=== PATIENT | male | born 1955 | race Hispanic/Latino ===

== ENCOUNTER 2023-07-20 04:36 | Emergency (ER) | payer OTHER ==
--- OUTSIDE RECORDS SUMMARY | 2023-07-20 04:40 | XMS REPORT | Continuity of Care Document ---
:1955 Author Organization [facility] t Address [address] [facility] [address] [place] [address] Care Team Providers Name Role Phone Asked, No Pcp Primary Care Physician Unavailable Manny MOULTON, Shilo Brown Attending Clinician Ysabel Attending Clinician Unavailable Den ONEIL, Ehsan Attending Clinician Unavailable [facility]isell [facility] Attending Clinician Unavailable Adali Mo RN Attending Clinician Unavailable Hilda Hinkle RN Attending Clinician Unavailable Dylan [facility] Attending Clinician Unavailable Jb Leung RN Attending Clinician Unavailable Patricia [facility] Attending Clinician Unavailable Taj [facility] Attending Clinician Unavailable PETER TORRES Attending Clinician Unavailable JESSY GUTIERREZ Attending Clinician Unavailable Brisa Tarango Attending Clinician Unavailable IVETTE Attending Clinician Unavailable PENNY Attending Clinician Unavailable A_Byrd Attending Clinician Unavailable JENNYFER SOMMER Attending Clinician Unavailable Ysabel Admitting Clinician Unavailable IVETTE Admitting Clinician Unavailable PENNY Admitting Clinician Unavailable A_Byrd Admitting Clinician Unavailable Payers Payer Name Policy Type Policy Number Effective Date Expiration Date S ource [place]: [id number] 2020 [employer] 00:00:00 [place]: [id number] 2020 [employer] 00:00:00 - [facility] Problems Condition Condition Condition Status Onset Resolution Last Treating Co mments Source Name Details Category Date Date Treatment Clinician Date Urinary Urinary Problem Active 2022-09 [place] tract Tract 0-30 [facility] infectious Infectious 00:00: Ur ology disease Disease 00 Retention Retention Problem Active 2022-09 Kizzy ston of urine of Urine 0-30 [facility] 00:00: Urology 00 Metastatic Metastatic Disease Active M ethodi adenocarci adenocarci 9-20 [facility] to noma to 00:00: Hospita liver liver 00 l Allergies, Adverse Reactions, Alerts This patient has no known allergies or adverse reactions. Family History Family Member Diagnosis Comments Start Date Stop Date Source Natural mother Esophageal cancer [facility] Social History Social Habit Start Date Stop Date Quantity Comments Source History of tobacco Current smoker Me thodist use [facility] Alcohol intake 2023-07-17 2023-07-17 [facility] 00:00:00 00:00:00 Hospital History of Social 2023-07-17 2023-07-[address] function 00:00:00 00:00:00 Hospital Tobacco use and 2023-06-05 2023-06-05 Smokeless [facility] exposure 00:00:00 00:00:00 tobacco non-user [facility] Sex [birth year] [facility] 00:00:00 00:00:00 Hospital Smoking Status Start Date Stop Date Source Current Every Day [facility] Smoker Ex-smoker 2023-06-05 00:00:00 2023-06-05 [facility] Ordered Filled Start Stop Current Ordering Indication Dosage Frequency Signature Comments Components Source Medication Medication Date Date Medication? Clinician (SIG) Name Name ondansetron 2022- Yes [id number] Take one [facility] (Zofran) 8 06-[address] MG tablet 00:00: mouth Hospita 00 every 8 l hours as needed for nausea prochlorper Yes [id number] Take one [facility] azine 06-[address] (COMPAZINE) 00:00: mouth Hospi ta 10 MG 00 every 6 l tablet hours as needed for nausea dexAMETHaso Yes [id number] Take 2 [facility] ne 06-[address] (DECADRON) 00:00: mouth once H ospita 4 MG tablet 00 daily with l breakfast for 2 days. Start day after each chemo lidocaine-p Yes [id number] Apply to [facility] rilocaine 06-[address] (EMLA) 00:00: one hour Hospita 2.5-2.5 % 00 before l cream chemo appointmen t. capecitabin 0 Yes [id number] Take 3 Methodi e (Xeloda) 06-[address] 500 mg 00:00: mouth Hospita chemo 00 twice l tablet daily for 14 days, off for 7 days in a 21 day cycle capecitabin capecitabin No capecitabi Reeves e 500 mg e 500 mg ne 500 mg Me tro tablet Take tablet Take tablet Urology by oral by oral Take by route. route. oral route. Cipro 500 Cipro 500 No 1 Q12H Cipro 500 Reeves mg tablet mg tablet mg tablet [facility] Take 1 Take 1 Take 1 Urology tablet tablet tablet every 12 every 12 every 12 hours by hours by hours by oral route. oral route. oral route. dexamethaso dexamethaso No dexamethas Reeves ne 4 mg ne 4 mg one 4 mg [facility] tablet TAKE tablet TAKE tablet Urology 2 TABLETS 2 TABLETS TAKE 2 BY MOUTH BY MOUTH TABLETS BY ONCE DAILY ONCE DAILY MOUTH ONCE WITH WITH DAILY WITH BREAKFAST BREAKFAST BREAKFAST FOR 2 DAYS. FOR 2 DAYS. FOR 2 START DAY START DAY DAYS. AFTER EACH AFTER EACH START DAY CHEMO CHEMO AFTER EACH CHEMO Flomax 0.4 Flomax 0.4 No 1capsul Q1D Flomax 0.4 Reeves mg capsule mg capsule e(s) mg capsule [facility] Take 1 Take 1 Take 1 Urology capsule capsule capsule every day every day every day by oral by oral by oral route. route. route. lidocaine-p lidocaine-p No lidocaine- Reeves rilocaine rilocaine prilocaine [facility] 2.5 %-2.5 % 2.5 %-2.5 % 2.5 %-2.5 Urology topical topical % topical cream APPLY cream APPLY cream TO PORT TO PORT APPLY TO AREA ONE AREA ONE PORT AREA HOUR BEFORE HOUR BEFORE ONE HOUR CHEMO CHEMO BEFORE APPOINTMENT APPOINTMENT CHEMO . . APPOINTMEN T. ondansetron ondansetron No ondansetro [place] HCl 8 mg HCl 8 mg n HCl 8 mg M etro tablet TAKE tablet TAKE tablet Urology 1 TABLET BY 1 TABLET BY TAKE 1 MOUTH EVERY MOUTH EVERY TABLET BY 8 HOURS 8 HOURS MOUTH NEEDED FOR NEEDED FOR EVERY 8 NAUSEA NAUSEA HOURS NEEDED FOR NAUSEA prochlorper prochlorper No prochlorpe [place] azine azine razine [facility] maleate 10 maleate 10 maleate 10 Urology mg tablet mg tablet mg tablet TAKE 1 TAKE 1 TAKE 1 TABLET BY TABLET BY TABLET BY MOUTH EVERY MOUTH EVERY MOUTH 6 HOURS 6 HOURS EVERY 6 NEEDED FOR NEEDED FOR HOURS NAUSEA NAUSEA NEEDED FOR NAUSEA Vital Signs Vital Name Observation Time Observation Value Comments Source BP Diastolic 2023-07-16 00:00:00 76 mm[Hg] [facility] BMI (Body Mass 2023-07-16 00:00:00 19 kg/m2 Jonatan damion [facility] Index) Urology BP Systolic 2023-07-16 00:00:00 122 mm[Hg] [facility] Body Weight 2023-07-16 00:00:00 118 [lb_av] [facility] Height 2023-07-16 00:00:00 66 [in_i] [facility] Systolic blood 2023-07-17 18:25:28 159 mm[Hg] [facility] pressure Diastolic blood 2023-07-17 18:25:28 89 mm[Hg] [facility] pressure Heart rate 2023-07-17 18:25:28 70 /min [facility] Body temperature 2023-07-17 18:25:28 36.28 [facility] Respiratory rate 2023-07-17 18:25:28 18 /min [facility] Oxygen saturation in 2023-07-17 18:25:28 94 /min [facility] Arterial blood by Pulse oximetry Body weight 2023-07-17 15:19:00 50.44 kg [facility] BMI 2023-07-17 15:19:00 17.95 kg/m2 [facility] Body height 2023-06-27 14:29:00 167.6 cm [facility] Procedures Procedure Date / Time Performing Clinician Source Performed COMPREHENSIVE METABOLIC 2023-07-17 14:30:00 Prath, [facility] PANEL [facility] CBC WITH PLATELET AND 2023-07-17 14:30:00 Prath, [facility] DIFFERENTIAL [place] MAGNESIUM LEVEL 2023-07-17 14:30:00 [facility] [place] ESTIMATED GFR 2023-07-17 14:30:00 Prath, Shilo [facility]ital [place] US LIVER BIOPSY 2023-06-27 16:27:38 Prath, [facility] SURGICAL PATHOLOGY REQUEST 2023-06-27 16:03:00 Prath, [facility] IR PORT PLACEMENT 2023-06-22 20:06:11 Prath, [facility] [place] US GUIDED VASCULAR ACCESS 2023-06-22 20:06:11 Prath, [facility] [place] PARTIAL THROMBOPLASTIN TIME 2023-06-22 18:15:00 Prath, [facility] (PTT) [place] PROTHROMBIN TIME WITH INR 2023-06-22 18:15:00 Prath, [facility] [place] HEPATITIS B SURFACE ANTIGEN 2023-06-22 18:15:00 Prath, [facility] [place] HEPATITIS B CORE ANTIBODY 2023-06-22 18:15:00 Prath, [facility] IGM [place] HEPATITIS B SURFACE AB, 2023-06-22 18:15:00 Prath, [facility] QUANTITATIVE [place] MAGNESIUM LEVEL 2023-06-22 18:15:00 Prath, [facility] [place] COMPREHENSIVE METABOLIC 2023-06-22 18:15:00 Prath, [facility] PANEL [place] CBC WITH PLATELET AND 2023-06-22 18:15:00 Prath, [facility] DIFFERENTIAL [place] ESTIMATED GFR 2023-06-22 18:15:00 Prath, [facility] [place] PET CT SKULL BASE TO MID 2023-06-22 17:36:01 Prath, Shilo [facility] THIGH [place] POC GLUCOSE 2023-06-22 16:01:00 Prath, [facility] spital [place] PARTIAL THROMBOPLASTIN TIME 2023-06-05 16:42:00 [facility], [facility] (PTT) [place] PROTHROMBIN TIME WITH INR 2023-06-05 16:42:00 Jan, [facility] [place] COMPREHENSIVE METABOLIC 2023-06-05 16:42:00 [facility], [facility] PANEL [place] CBC WITH PLATELET AND 2023-06-05 16:42:00 Pra, [facility] DIFFERENTIAL [place] CANCER ANTIGEN 125 2023-06-05 16:42:00 Pra, [facility] [place] CANCER ANTIGEN 19-9 2023-06-05 16:42:00 Pra, [facility] [place] CARCINOEMBRYONIC ANTIGEN 2023-06-05 16:42:00 [facility], [facility] (CEA) [place] ESTIMATED GFR 2023-06-05 16:42:00 [facility], [facility] spital [facility] US ABDOMINAL EXTERNAL STUDY 2023-05-03 14:59:34 [facility], [facility] CT ABD/PELVIC EXTERNAL 2023-04-26 16:48:47 [facility], [facility] STUDY [place] XR ABD/PELVIC EXTERNAL 2023-04-26 16:06:24 [facility], [facility] STUDY [place] Plan of Care Planned Activity Planned Date Details Comments Source Future Scheduled 2023-07-19 65+ PNEUMOCOCCAL [facility] Test 13:22:35 VACCINE (1 - PCV) [code = 65+ PNEUMOCOCCAL VACCINE (1 - PCV)] Future Scheduled 2023-07-19 COVID-19 VACCINE (4 - [facility] Test 13:22:35 season) [code = COVID-19 VACCINE (4 - season)] Future Scheduled 2023-07-19 INFLUENZA VACCINE [facility] Test 13:22:35 (#1) [code = INFLUENZA VACCINE (#1)] Future Scheduled 2023-07-19 Hepatitis C screening [facility] Test 13:22:35 (procedure) [code = 324118918] Future Scheduled 2023-07-19 SHINGLES VACCINES (1 [facility] Test 13:22:35 of 2) [code = SHINGLES VACCINES (1 of 2)] Future Scheduled 2023-07-19 HEPATITIS B VACCINES [facility] Test 13:22:35 (1 of 3 - Risk 3-dose series) [code = HEPATITIS B VACCINES (1 of 3 - Risk 3-dose series)] Diagnostic Test 2023-07-16 urinalysis, dipstick [place] [facility] Pending 00:00:00 [code = urinalysis, Urology dipstick] Encounters Start End Encounter Admission Attending Care Care Encounter Source Date/Time Date/Time Type Type Clinicians Facility Department ID 2023-07-17 2023-07-17 Office [facility], 1.2.840.1 [id number] Method[facility] 11:45:00 14:14:40 Visit Shilo 74742.1.[address] [place] 3.430.2.7 Hospit a .3.889439 l .8 2023-07-17 2023-07-17 Infusion [facility], 1.2.840.1 [id number] [facility] 10:30:00 13:30:[address] [place] 3.430.2.7 Hospit a .3.620846 l .8 2023-07-17 2023-07-17 Lab [facility], 1.2.840.1 [id number] Methodi 09:25:00 09:30:[address] [place] 3.430.2.7 Hospit a .3.023748 l .8 2023-07-17 2023-07-17 Outpatient [facility] [id number] [place] 00:00:00 00:00:00 SHILO 826 Method i 2023-07-17 2023-07-17 Outpatient [facility] [id number] [place] 00:00:00 00:00:00 SHILO 281 Method i 2023-07-17 2023-07-17 Critical access hospital [id number] [place] 00:00:00 00:00:00 SHILO 509 Method i 2023-07-16 2023-07-16 Outpatient Schiffman_Z [facility]U HMU [id number] [place] 00:00:00 00:00:00 30714 [facility] 2023-07-16 2023-07-16 Outpatient Schiffman_Z HMU HMU [id number] [place] 00:00:00 00:00:00 [id number] [facility] 2023-07-16 2023-07-16 Outpatient Schiffman_Z HMU HMU [id number] [place] 00:00:00 00:00:00 08472 [facility] 2023-07-16 2023-07-16 [place] [facility] [place] [facility] [id number] [facility] 00:00:00 Leandro Stock MD: [id number] [facility] Urology [facility] [address], [place] [address] , Ph. 2023-07-11 2023-07-11 Outpatient Schiffman_Z HMU HMU [id number] [place] 00:00:00 00:00:00 17902 [facility] 2023-07-11 2023-07-11 Outpatient Schiffman_Z HMU HMU [id number] [place] 00:00:00 00:00:00 92634 [facility] 2023-07-03 2023-07-03 Yahir Crenshaw 1.2.840.1 [id number] Methodi 00:00:00 00:00:[address] 3.430.2.7 Hospit a .3.942223 l .8 2023-07-03 2023-07-03 Documentat Visintainer 1.2.840.1 [id number] Methodi 00:00:00 00:00:00 Lillian de la rosa 29544.1.[address] 3.430.2.7 Hospit a .3.387047 l .8 2023-06-28 2023-06-28 Carrie Mo 1.2.840.1 [id number] [facility] 00:00:00 00:00:00 Only Adali 01184.1.[address] 3.430.2.7 Hospit a .3.898987 l .8 2023-06-27 2023-06-27 [facility], 1.2.840.1 [id number] Methodi 09:04:36 23:59:00 Encounter Shilo 66083.1.[address] [place] 3.430.2.7 Hospit a .3.844801 l .8 2023-06-27 2023-06-27 Outpatient [facility] [id number] [place] 00:00:00 00:00:00 SHILO [address] 2023-06-26 2023-06-26 Infusion [facility], 1.2.840.1 [id number] Methodi 11:30:00 14:30:[address] [facility] 3.430.2.7 Hospit a .3.637686 l .8 2023-06-26 2023-06-26 [facility], 1.2.840.1 [id number] Method[facility] 11:30:00 13:56:22 Visit Shilo 17815.1.[address] [place] 3.430.2.7 Hospit a .3.919263 l .8 2023-06-26 2023-06-26 Outpatient [facility] [id number] [place] 00:00:00 00:00:00 SHILO [address] 2023-06-26 2023-06-26 Critical access hospital [id number] [place] 00:00:00 00:00:00 SHILO [address] 2023-06-26 2023-06-26 Oncology Hinkle, 1.2.840.1 [id number] Methodi 00:00:00 00:00:00 Survivorsh Hilda 39902.1.[address] ip 3.430.2.7 Hospit a .3.499394 l .8 2023-06-26 2023-06-26 Oncology Hinkle, 1.2.840.1 [id number] Methodi 00:00:00 00:00:00 Surviv[address]ilda [address]269.1.[address] ip 3.430.2.7 Hospit a .3.215144 l .8 2023-06-26 2023-06-26 Orders Delmar Richardson 1.2.840.1 [id number] Methodi 00:00:00 00:00:[address] 3.430.2.7 Hospit a .3.840903 l .8 2023-06-25 2023-06-25 Telephone Jb Leung 1.2.840.1 [id number] Methodi 00:00:00 00:00:[address] 3.430.2.7 Hospit a .3.101479 l .8 2023-06-25 2023-06-25 Documentlarisa Patricia 1.2.840.1 [id number] [id number] Methodi 00:00:00 00:00:00 estrella Marks 45256.1.[address] 3.430.2.7 Hospit a .3.458413 l .8 2023-06-22 2023-06-22 [facility], 1.2.840.1 [id number] Methodi 13:29:57 23:59:00 Encounter Shilo 35587.1.[address] [facility] 3.430.2.7 Hospit a .3.937947 l .8 2023-06-22 2023-06-22 [facility] 1.2.840.1 [id number] Methodi 10:30:53 13:28:00 Encounter Shilo 47299.1.[address] [place] 3.430.2.7 Hospit a .3.963498 l .8 2023-06-22 2023-06-22 [facility] 1.2.840.1 [id number] Methodi 12:55:00 13:00:[address] [place] 3.430.2.7 Hospit a .3.404801 l .8 2023-06-22 2023-06-22 Critical access hospital [id number] [address] [place] [address] 00:00:00 00:00:00 SHILO [address] 2023-06-22 2023-06-22 Critical access hospital [id number] [place] 00:00:00 00:00:00 SHILO [address] 2023-06-22 2023-06-22 [facility], [facility] [id number] [place] 00:00:00 00:00:00 SHILO [address] 2023-06-13 2023-06-13 [facility], 1.2.840.1 [id number] Methodi 11:20:31 23:59:00 Encounter Shilo 54524.1.[address] [facility] 3.430.2.7 Hospit a .3.179862 l .8 2023-06-13 2023-06-13 Critical access hospital [id number] [place] 00:00:00 00:00:00 SHILO [address] 2023-06-13 2023-06-13 [facility], 1.2.840.1 [id number] Methodi 00:00:00 00:00:00 Only Shilo 48120.1.[address] [facility] 3.430.2.7 Hospit a .3.066717 l .8 2023-06-12 2023-06-12 [facility], 1.2.840.1 [id number] Methodi 08:01:11 23:59:00 Encounter Shilo 75156.1.[address] [place] 3.430.2.7 Hospit a .3.510068 l .8 2023-06-12 2023-06-12 [facility], 1.2.840.1 [id number] Methodi 08:00:30 08:00:30 Encounter Shilo 65304.1.[address] [place] 3.430.2.7 Hospit a .3.785776 l .8 2023-06-12 2023-06-12 Critical access hospital [id number] [place] 00:00:00 00:00:00 SHILO [address] 2023-06-12 2023-06-12 [facility], [facility] [id number] [place] 00:00:00 00:00:00 SHILO [address] 2023-06-12 2023-06-12 Orders Chepe, 1.2.840.1 [id number] Methodi 00:00:00 00:00:00 Only Adali 62466.1.[address] 3.430.2.7 Hospit a .3.717640 l .8 2023-06-12 2023-06-12 Orders Manny, 1.2.840.1 [id number] [facility] 00:00:00 00:00:00 Only Shilo 43779.1.[address] [facility] 3.430.2.7 Hospit a .3.866660 l .8 2023-06-07 2023-06-07 Orders Chepe, 1.2.840.1 [id number] Methodi 00:00:00 00:00:00 Only Adali 80506.1.[address] 3.430.2.7 Hospit a .3.452415 l .8 2023-06-07 2023-06-07 Orders Chepe, 1.2.840.1 [id number] [facility]i 00:00:00 00:00:00 Only Adali 37864.1.[address] 3.430.2.7 Hospit a .3.211468 l .8 2023-06-07 2023-06-07 Orders Chepe, 1.2.840.1 [id number] Methodi 00:00:00 00:00:00 Only Adali 81020.1.[address] 3.430.2.7 Hospit a .3.394604 l .8 2023-06-07 2023-06-07 Telephone Chepe, 1.2.840.1 [id number] Methodi 00:00:00 00:00:[address] 3.430.2.7 Hospit a .3.041780 l .8 2023-06-06 2023-06-06 Carrie Amor, 1.2.840.1 [id number] Methodi 00:00:00 00:00:00 Only Shilo 70232.1.[address] [facility] 3.430.2.7 Hospit a .3.160441 l .8 2023-06-06 2023-06-06 Telephone Prafaye, 1.2.840.1 [id number] Methodi 00:00:00 00:00:[address] [place] 3.430.2.7 Hospit a .3.483779 l .8 2023-06-06 2023-06-06 Orders Taj, 1.2.840.1 [id number] Methodi 00:00:00 00:00:00 Only Jamey 46065.1.[address] 3.430.2.7 Hospit a .3.003458 l .8 2023-06-06 2023-06-06 Orders Chepe, 1.2.840.1 [id number] Methodi 00:00:00 00:00:00 Only Adali 74060.1.[address] 3.430.2.7 Hospit a .3.976931 l .8 2023-06-05 2023-06-05 [facility] 1.[facility].840.1 [id number] Methodi 11:15:00 11:20:[address] [place] 3.430.2.7 Hospit a .3.124566 l .8 2023-06-05 2023-06-05 Office Prafaye, 1.2.840.1 [id number] Methodi 10:15:00 11:13:28 Visit Shilo 78355.1.[address] [place] 3.430.2.7 Hospit a .3.528925 l .8 2023-06-05 2023-06-05 Orders Chepe, 1.2.840.1 [id number] Methodi 00:00:00 00:00:00 Only Adali 82177.1.[address] 3.430.2.7 Hospit a .3.117092 l .8 2023-06-05 2023-06-05 Outpatient MANNY, [facility] [id number] [place] 00:00:00 00:00:00 SHILO [address] 2023-06-05 2023-06-05 Outpatient MANNY, [facility] [id number] [place] 00:00:00 00:00:00 SHILO 350 Method i 2023-06-04 2023-06-04 Emergency ER TORRES[facility] [id number] [place] 09:30:00 10:09:00 PETER -[id number] [facility] 2023-05-03 2023-05-03 Outpatient VINNY GUTIERREZ, [facility] [id number] [place] 07:44:00 07:44:00 JESSY -[id number] [facility] 2023-05-01 2023-05-01 Outpatient VINNY GUTIERREZ, [facility] [id number] [place] 08:37:00 08:37:00 JESSY [id number] [facility] 2023-04-26 2023-04-26 emergency [id number] 10:20:00 16:26:00 [id number] 2023-04-26 2023-04-26 Emergency ER Sukhdeep, [facility] [id number] [place] 10:20:00 16:26:00 Brisa [id number] [facility] 2022-03-30 2022-03-30 Outpatient YUNIER_PATRICIA [facility] [id number] [place] 03:43:00 03:43:00 _ANN 0714 [facility] 2020-11-22 2020-11-22 Outpatient [facility] [id number] [place] 10:29:00 10:29:00 [id number] [facility] 2020-11-22 2020-11-22 Outpatient [facility] [id number] [place] 09:21:00 09:21:00 0308 [facility] 2020-11-20 2020-11-20 Emergency ER ROS, [facility] [id number] [place] 12:11:00 13:52:00 JENNYFER -[id number] [facility] Results Test Description Test Time Test Comments Results Result Comments Source Surgical pathology request 2023-06-29 19:56:09 Test Item Value Reference Range Interpretation Comme nts Case number (test code = 3396696) [id number] Surgical pathology report (test code = See link below for PDF Lab R eport 2256) Result status (test code = 0808856) This is Final Report for [id number] [facility] [id number] 16:02:00 Test Item Value Reference Range Interpretation Comments POC glucose (test code = 127 mg/dL 65-99 H Ope rator Name: Delbert [id number]) NhiDevice ID: [id number] able : No Action Nee ded Lab Interpretation (test Abnormal code = 78693-2) [facility]
[2023-07-20] MEDS ORDERED: TAMSULOSIN 0.4 MG SR CAP ONE (05:25)
[2023-07-20] MEDS ORDERED: CIPROFLOXACIN HCL 500 MG TAB ONE (05:25)
--- NOTE | 2023-07-20 05:40 | EDPHYS ---
Physician Documentation [facility] Name: Tera Durand Age: 67 yrs Sex: Male : 1955 Arrival Date: 07/20/2023 Time: 04:36 Bed 18 Private MD: RAJ Physician Clement Ellis HPI: 07/20 05:35 This 67 yrs old Male presents to ER via Ambulatory with complaints of CAN NOT ubaldo USE THE RESTROOM. PATIENT IS IN ALOT OF PAIN, Fever. 05:35 The patient reports fever, not measured (subjective). ubaldo Historical: - Allergies: 05:06 No Known Allergies; as6 - PMHx: 05:06 liver cancer; as6 - PSHx: 05:06 None; as6 - Immunization history:: Client reports receiving the 2nd dose of the Covid vaccine. - Social history:: Smoking status: Patient/guardian denies using tobacco. ROS: 05:35 Constitutional: Negative for fever, chills, and weight loss, Eyes: Negative for injury, ubaldo pain, redness, and discharge, ENT: Negative for injury, pain, and discharge, Neck: Negative for injury, pain, and swelling, Cardiovascular: Negative for chest pain, palpitations, and edema, Respiratory: Negative for shortness of breath, cough, wheezing, and pleuritic chest pain, Abdomen/GI: Negative for abdominal pain, nausea, vomiting, diarrhea, and constipation, Back: Negative for injury and pain, MS/Extremity: Negative for injury and deformity, Skin: Negative for injury, rash, and discoloration, Neuro: Negative for headache, weakness, numbness, tingling, and seizure, Psych: Negative for depression, anxiety, suicide ideation, homicidal ideation, and hallucinations, Allergy/Immunology: Negative for hives, rash, and allergies, Endocrine: Negative for neck swelling, polydipsia, polyuria, polyphagia, and marked weight changes, Hematologic/Lymphatic: Negative for swollen nodes, abnormal bleeding, and unusual bruising, 05:35 : Positive for difficulty urinating, Exam: 05:35 Constitutional: This is a well developed, well nourished patient who is awake, alert, ubaldo and in no acute distress. Head/Face: Normocephalic, atraumatic. Eyes: Pupils equal round and reactive to light, extra-ocular motions intact. Lids and lashes normal. Conjunctiva and sclera are non-icteric and not injected. Cornea within normal limits. Periorbital areas with no swelling, redness, or edema. ENT: Nares patent. No nasal discharge, no septal abnormalities noted. Tympanic membranes are normal and external auditory canals are clear. Oropharynx with no redness, swelling, or masses, exudates, or evidence of obstruction, uvula midline. Mucous membranes moist. Neck: Trachea midline, no thyromegaly or masses palpated, and no cervical lymphadenopathy. Supple, full range of motion without nuchal rigidity, or vertebral point tenderness. No Meningismus. Chest/axilla: Normal chest wall appearance and motion. Nontender with no deformity. No lesions are appreciated. Cardiovascular: Regular rate and rhythm with a normal S1 and S2. No gallops, murmurs, or rubs. Normal PMI, no JVD. No pulse deficits. Respiratory: Lungs have equal breath sounds bilaterally, clear to auscultation and percussion. No rales, rhonchi or wheezes noted. No increased work of breathing, no retractions or nasal flaring. Abdomen/GI: Soft, non-tender, with normal bowel sounds. No distension or tympany. No guarding or rebound. No evidence of tenderness throughout. Back: No spinal tenderness. No costovertebral tenderness. Full range of motion. Skin: Warm, dry with normal turgor. Normal color with no rashes, no lesions, and no evidence of cellulitis. MS/ Extremity: Pulses equal, no cyanosis. Neurovascular intact. Full, normal range of motion. Neuro: Awake and alert, GCS 15, oriented to person, place, time, and situation. Cranial nerves II-XII grossly intact. Motor strength 5/5 in all extremities. Sensory grossly intact. Cerebellar exam normal. Normal gait. Psych: Awake, alert, with orientation to person, place and time. Behavior, mood, and affect are within normal limits. 05:35 : CVA tenderness, is absent, Male external genitalia: normal, Bladder: distension, that is moderate, Sexual behavior: the patient is not sexually active, Vital Signs: 05:05 BP 137 / 84; Pulse 99; Resp 20 S; Temp 97.2(TE); Pulse Ox 98% on R/A; Weight 50.35 kg as6 (R); Height 5 ft. 6 in. (R); Pain 9/10; 05:53 BP 128 / 72; Pulse 72; Resp 18 S; Pulse Ox 97% on R/A; jw7 05:05 Body Mass Index 17.92 (50.35 kg, 167.64 cm) as6 05:05 Pain Scale: Adult as6 MDM: 04:42 Patient medically screened. ubaldo 05:37 Differential diagnosis: nonspecific abdominal pain, urinary retention, prostatitis, ubaldo urethritis, UTI. Data reviewed: vital signs, nurses notes, lab test result(s), urinalysis. Consideration of Admission/Observation Escalation of care including admission/observation considered. I considered the following discharge prescriptions or medication management in the emergency department Medications were administered in the Emergency Department. See MAR. Test considered but Not performed: Labs: NO LABS. Care significantly affected by the following chronic conditions: Liver Disease, LIVER CANCER. Counseling: I had a detailed discussion with the patient and/or guardian regarding the historical points, exam findings, and any diagnostic results supporting the discharge/admit diagnosis, the presence of at least one elevated blood pressure reading (>120/80) during this emergency department visit, the need for outpatient follow up, for definitive care, a family practitioner, a urologist. 07/20 05:01 Order name: Urinalysis w/ reflexes [facility] 07/20 05:01 Order name: Urine Culture [facility] 07/20 05:01 Order name: Jimenez; Complete Time: 05:05 ubaldo Administered Medications: 05:34 Not Given (Duplicate Order): [id number] mg PO once ubaldo 05:36 Drug: Flomax PO 0.4 mg PO once Route: PO; jw7 05:55 Follow up: Response: No adverse reaction jw7 Disposition Summary: 07/20/23 05:39 Discharge Ordered Notes: Location: Home ubaldo Problem: new ubaldo Symptoms: have improved ubaldo Condition: Fair ubaldo Diagnosis - Retention of urine, unspecified - PVR 500 CC CLEAR ubaldo Followup: ubaldo - With: Private Physician - When: 2 - 3 days - Reason: Recheck today's complaints, Continuance of care, Re-evaluation by your physician Followup: ubaldo - With: Richard Sandy MD - When: 2 - 3 days - Reason: Recheck today's complaints, Re-evaluation by your physician Discharge Instructions: - Discharge Summary Sheet ubaldo - Acute Urinary Retention, Male ubaldo - Acute Urinary Retention, Male, [id number] [facility] Forms: - Medication Reconciliation Form ubaldo - Thank You Letter ubaldo - Antibiotic Education ubaldo - Prescription Opioid Use ubaldo - Patient Portal Instructions ubaldo - Leadership Thank You Letter ubaldo Prescriptions: - Flomax 0.4 mg Oral capsule - take 1 capsule ORAL route every 24 hours; 20 capsule; Refills: 0, Product ubaldo Selection Permitted Signatures: Dispatcher [employer] Clement Shipman MD MD cha Slawson, Ashby RN RN as6 Amada Molina RN RN jw7
--- NOTE | 2023-07-20 05:40 | ER ---
Nurse's Notes [facility] Name: Tera Durand Age: 67 yrs Sex: Male : 1955 Arrival Date: 07/20/2023 Time: 04:36 Bed 18 Private MD: Diagnosis: Retention of urine, unspecified-PVR 500 CC CLEAR Presentation: 07/20 05:06 Chief complaint: Patient states: pt had Gaona catheter removed last night and has not as6 urinated since 07/19. Coronavirus screen: At this time, the client does not indicate any symptoms associated with coronavirus-19. Ebola Screen: No symptoms or risks identified at this time. Initial Sepsis Screen: Does the patient meet any 2 criteria? No. Patient's initial sepsis screen is negative. Does the patient have a suspected source of infection? No. Patient's initial sepsis screen is negative. Risk Assessment: Do you want to hurt yourself or someone else? Patient reports no desire to harm self or others. Onset of symptoms was July 20, 2023. 05:06 Acuity: SHIRA 3 as6 05:06 Method Of Arrival: Ambulatory as6 Historical: - Allergies: 05:06 No Known Allergies; as6 - PMHx: 05:06 liver cancer; as6 - PSHx: 05:06 None; as6 - Immunization history:: Client reports receiving the 2nd dose of the Covid vaccine. - Social history:: Smoking status: Patient/guardian denies using tobacco. Screenin:52 [facility] ED Fall Risk Assessment (Adult) History of falling in the last 3 months, jw7 including since admission No falls in past 3 months (0 pts) Score/Fall Risk Level 0 - 2 = Low Risk Oriented to surroundings, Maintained a safe environment. Abuse screen: Denies threats or abuse. Denies injuries from another. Nutritional screening: No deficits noted. Tuberculosis screening: No symptoms or risk factors identified. Assessment: 05:15 General: Appears in no apparent distress. comfortable, Behavior is calm, cooperative. jw7 Pain: Complains of pain in suprapubic area Pain does not radiate. Pain currently is 8 out of 10 on a pain scale. Quality of pain is described as pressure, sharp, Is continuous, Noted to be guarding, moaning. Neuro: Self Agitation-Sedation Scale (RASS): 0 - Alert and Calm Level of Consciousness is awake, alert, obeys commands, Oriented to person, place, time, situation. Cardiovascular: No deficits noted. Respiratory: No deficits noted. GI: Abdomen is flat, non-distended, Bowel sounds present X 4 quads. : Reports cramping, inability to void, pain urgency. EENT: No deficits noted. No signs and/or symptoms were reported regarding the EENT system. Derm: No deficits noted. No signs and/or symptoms reported regarding the dermatologic system. Musculoskeletal: No deficits noted. No signs and/or symptoms reported regarding the musculoskeletal system. 05:52 Reassessment: Patient appears in no apparent distress at this time. Patient is alert, jw7 oriented x 3, equal unlabored respirations, skin warm/dry/pink. Patient states feeling better. Patient states symptoms have improved. Vital Signs: 05:05 BP 137 / 84; Pulse 99; Resp 20 S; Temp 97.2(TE); Pulse Ox 98% on R/A; Weight 50.35 kg as6 (R); Height 5 ft. 6 in. (R); Pain 9/10; 05:53 BP 128 / 72; Pulse 72; Resp 18 S; Pulse Ox 97% on R/A; jw7 05:05 Body Mass Index 17.92 (50.35 kg, 167.64 cm) as6 05:05 Pain Scale: Adult as6 ED Course: 04:40 Patient arrived in ED. gm2 04:42 Clement Ellis MD is Attending Physician. [facility] 05:04 Arm band placed on. as6 05:05 Gaona cath inserted, using sterile technique, 18 Fr., by al, balloon inflated, to as6 gravity drainage, returned clear yellow urine. Patient tolerated well. 05:07 Triage completed. as6 05:08 Amada Molina, RN is Primary Nurse. jw7 05:15 Patient has correct armband on for positive identification. Bed in low position. Call [facility] light in reach. Side rails up X2. 05:39 Richard Sandy MD is Referral Physician. [facility] 05:53 No provider procedures requiring assistance completed. [facility] 05:53 Patient did not have IV access during this emergency room visit. [facility] 05:55 Provided Education on: discharge instructions and medication usage. [facility] 06:03 Placed leg bag on patient. vc1 Administered Medications: 05:34 Not Given (Duplicate Order): [id number] mg PO once [facility] 05:36 Drug: Flomax PO 0.4 mg PO once Route: PO; jw7 05:55 Follow up: Response: No adverse reaction jw7 Medication: 05:53 VIS not applicable for this client. jw7 Outcome: 05:39 Discharge ordered by . ubaldo 05:54 Discharged to home ambulatory, with family, jw7 05:54 Condition: stable 05:54 Discharge instructions given to patient, family, Instructed on discharge instructions, follow up and referral plans. medication usage, Demonstrated understanding of instructions, follow-up care, medications, Prescriptions given X 1, 05:56 Patient left the ED. jw7 Signatures: Clement Ellis MD MD cha Slawson, Ashby, RN RN as6 Eufemia King RN RN vc1 Amada Molina RN RN jw7 Layla Metcalf gm2 Corrections: (The following items were deleted from the chart) :52 05:48 General: Appears in no apparent distress. comfortable, Behavior is calm, jw7 cooperative, jw7 :52 05:48 Pain: Complains of pain in suprapubic area Pain does not radiate. Pain currently jw7 is 8 out of 10 on a pain scale. Quality of pain is described as pressure, sharp, Is continuous, Noted to be guarding, moaning, jw7 :52 05:48 Neuro: Self Agitation-Sedation Scale (RASS): 0 - Alert and Calm Level of jw7 Consciousness is awake, alert, obeys commands, Oriented to person, place, time, situation, jw7 52 05:48 Cardiovascular: No deficits noted. jw7 jw7 05:48 Respiratory: No deficits noted. jw7 jw7 : 05:48 GI: Abdomen is flat, non-distended, Bowel sounds present X 4 quads. jw7 jw7 05:48 : Reports cramping, inability to void, pain urgency, jw7 jw7 05:48 EENT: No deficits noted. No signs and/or symptoms were reported regarding the jw7 EENT system. jw7 05:48 Derm: No deficits noted. No signs and/or symptoms reported regarding the jw7 dermatologic system. jw7 05:52 05:48 Musculoskeletal: No deficits noted. No signs and/or symptoms reported regarding jw7 the musculoskeletal system. jw7
[2023-07-20 05:45] LABS: Specific Gravity 1.018 (1.005-1.030); Urine Bacteria None Seen /HPF (<20); Urine Bilirubin NEGATIVE (Negative); Urine Blood Negative (Negative); Urine Clarity Turbid (Clear); Urine Color Light-Yellow (Yellow); Urine Crystals Unidentified Few /HPF (None Seen); Urine Glucose NEGATIVE (Negative); Urine Mucus Slight /HPF (None Seen); Urine Protein NEGATIVE (Negative); Urine Urobilinogen Normal (Normal); Urine pH 6.5 (5.0-7.0)
[2023-07-20 06:02] VITALS: TEMP 97.2
[2023-07-20 06:03] VITALS: BP 128/72; O2SAT 97
== END 2023-07-20 05:56 | disposition home or self-care (01) ==
LOC: ER 04:36
DX: R33.9 Retention of urine, unspecified (principal); Z85.05 Personal history of malignant neoplasm of liver
CPT/HCPCS: 51702; 81001; 87086; 87088; 99284